=== PATIENT | female | born 2005 | race Caucasian/White ===

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

== ENCOUNTER 2023-10-21 14:30 | Outpatient (CLI) | payer MEDICAID, SELFPAY ==
[2023-10-21 14:50] VITALS: BP 124/76; PULSE 83
[2023-10-21 14:54] VITALS: BMI 36.2
[2023-10-21 14:56] VITALS: RESP 16; TEMP 36.7
--- NOTE | 2023-10-21 19:04 | OB.TRI.NOTE ---
HPI - General General Date of Service: 10/21/23 HPI Narrative FUNMILAYO MCCRARY, is a 18 F who presents with N&V. Maternal Data Information Final ELIDIA: 12/14/23 Gestational age: 32&5 PFSH [facility] Medical History (Updated 10/21/23 @ 19:[address] Alexander Solano MD) SVT (supraventricular tachycardia) POTS (postural orthostatic tachycardia syndrome) Home Medications ?Medication ?Instructions ?Recorded ?Last Taken ?Type vitamins no.144-folic 2 tab PO DAILY 10/21/23 10/20/23 21:17 History acid 400 mcg chewable tablet () Allergy/AdvReac Type Severity Reaction Status Date / Time No Known Allergies Allergy Verified 10/21/23 15:14 Social History Smoking Status: Current every day smoker tobacco type: e-cigarettes NST FHR Rate Baby A Baseline: 120 Variability:: Moderate Accelerations:: 15 x 15 Decelerations:: None NST Reactive:: Yes Uterine Activity:: quiet Assessment & Plan (1) Nausea/vomiting in : PLAN: Reactive NST
== END 2023-10-21 15:39 | disposition home or self-care (01) ==
LOC: WPOUT 14:37 → WP 14:38
PROVIDERS: PCP Family Medicine; Referring Provider Obstetrics & Gynecology; Visit Provider Obstetrics & Gynecology
DX: O21.9 Vomiting of pregnancy, unspecified (principal); F17.290 Nicotine dependence, other tobacco product, uncomplicated; Z3A.32 32 weeks gestation of pregnancy; O99.330 Smoking (tobacco) complicating pregnancy, unspecified trimester
CPT/HCPCS: 59025; 59050; 99221; G0378

== ENCOUNTER 2023-11-27 19:07 | Inpatient (IN) | payer MEDICAID, SELFPAY ==
[2023-11-27] VITALS (10 sets, daily range): BP systolic 140–157; BP diastolic 73–90; PULSE 76–93; RESP 16; TEMP 36.9–37; O2SAT 97–98; BMI 36.6
--- NOTE | 2023-11-27 18:52 | PCM.HP.OB ---
HPI - General General Date of Admission: 11/27/23 HPI Narrative FUNMILAYO MCCRARY, is a 18 F 37w4d at who presents for medically indicated induction of labor. Seen at [facility] on 11/24 for elevated BP. BP range 140/160's with normal Preeclampsia work up. Discharged home on Procardia XR 30mg PO once daily. Denies any headache, visual changes, or RUQ pain. Took BP at home and 160/110. Called patient from office after reviewing notes from ED visit on 10/25 and recommend IOL for GHTN Maternal Data Information ELIDIA Calculator Estimated Delivery Date Method Current WG Current Estimate 12/14/23 Manual 37w 4d PFSH PFS Medical History (Updated 11/27/23 @ 19:02 by Francesca Kwong CNM) SVT (supraventricular tachycardia) POTS (postural orthostatic tachycardia syndrome) Home Medications ?Medication ?Instructions ?Recorded ?Last Taken ?Type vitamins no.144-folic 2 tab PO DAILY supplement 10/21/23 11/26/23 21:00 History acid 400 mcg chewable tablet () nifedipine 30 mg tablet,extended 30 mg PO DAILY gestational 11/27/23 11/27/23 11:55 History release 24 hr (Procardia XL) hypertension Allergy/AdvReac Type Severity Reaction Status Date / Time No Known Allergies Allergy Verified 11/27/23 19:57 Social History Smoking Status: Current every day smoker tobacco type: e-cigarettes ROS Constitutional Constitutional: Reports systems reviewed and no addt'l complaints, except as documented; Denies headache(s) Eyes Eyes: Denies acute decrease in peripheral vision, blurry vision or change in vision ENT HEENT: Reports systems reviewed and no addt'l complaints, except as documented Cardiovascular Cardiovascular: Denies chest pain or dizziness Respiratory/Chest Respiratory/Chest: Denies cough, dyspnea, dyspnea on exertion, shortness of breath at rest or shortness of breath with exertion Gastrointestinal Gastrointestinal: Denies abdominal pain, diarrhea, nausea or vomiting Genitourinary Genitourinary: Denies abdominal discomfort Musculoskeletal Musculoskeletal: Denies limited range of motion Integumentary Integumentary: Reports systems reviewed and no addt'l complaints, except as documented Neurologic Neurologic: Reports systems reviewed and no addt'l complaints, except as documented Psychiatric Psychiatric: Reports systems reviewed and no addt'l complaints, except as documented Endocrine Endocrinology: Reports systems reviewed and no addt'l complaints, except as documented Hematologic/Lymphatic Hematologic/Lymphatic: Reports systems reviewed and no addt'l complaints, except as documented Allergic/Immunologic Allergic/Immunologic: Reports systems reviewed and no addt'l complaints, except as documented Vital Signs Vital Signs Vital Signs: 11/27/23 18:20 11/27/23 18:20 11/27/23 18:35 Pulse Rate 93 Blood Pressure 146/73 H 150/82 H BP Systolic 146 150 BP Diastolic 73 82 11/27/23 18:35 11/27/23 18:50 11/27/23 18:50 Pulse Rate 93 89 Blood Pressure 142/80 H BP Systolic 142 BP Diastolic 80 Weight Weight: 227 lb 4.745 oz Body Mass Index (BMI) 36.6 Physical Exam Const alert and oriented x3 General Appearance: cooperative Orientation / Consciousness: awake, oriented to person, oriented to place and oriented to time Exam Limitations: no limitations HEENT normocephalic Head and Scalp: normal to inspection, normocephalic and atraumatic Face and Sinus: normal facial exam Eyes General Eye: normal appearance of both eyes Neck full ROM Chest Chest: symmetrical chest wall rise Resp normal respiratory effort and normal air movement Auscultation: clear to auscultation bilaterally Cardio regular rate, regular rhythm, S1 normal heart sound, S2 normal heart sound, no murmurs, no rub, no gallops and no clicks GI normal to inspection, nondistended, normoactive bowel sounds and non-tender appearance of the vagina normal Bladder / Kidney Exam: no CVA tenderness Manual OB Exam: estimated gestational size appropriate, presentation cephalic, dilated fingertip, effaced 50%, station -3 and other Rod inserted over stylus through cervical os. 30ml NS instilled. Patient tolerated well. Back/Spine normal ROM Extremity normal to inspection and full ROM Skin no rashes or lesions noted Neuro oriented x3, CN's II-XII intact bilaterally and moves all extremities Sensorium / Orientation: awake, alert and oriented to person Motor Exam: clonus absent Deep Tendon Reflexes: Rt Patellar (L4): 2+ and Lt Patellar (L4): 2+ Labs Labs Labs: Antibody Screen Pending Hct 33.2 % (37-47) L Hgb 11.7 g/dL (12.0-15.0) L Syphilis Total Ab Pending GBS negative 1hr GCT negative O negative, Rhogam given 09/25/23 RPR non reactive Rubella Immune HBsAG negative HepC negative HIV non reactive Assessment & Plan (1) Gestational hypertension: (2) 37 weeks gestation of : (3) History of depression: (4) Obesity affecting : (5) Nicotine vapor product user: (6) Thrombocytopenia: (7) Rh negative status during : COMMENT: Rhogam given 09/25/23 (8) Positive GBS test: (9) Encounter for induction of labor: PLAN: Plan 1) Admit to labor and delivery 2) Routine labs and preeclampsia labs 3) Continuous EFM 4) Rod with cytotec for cervical ripening and then will start pitocin. 5) collaborative physician and notified of patient above assessment, plan and status 6) Pain management upon request. 7) BP mild range at this time, no signs of preeclampsia
[2023-11-27] MEDS: Lactated Ringers 1,000 ML 50 ML IV (19:25)
[2023-11-27 19:44] LABS: Absolute Lymphocyte Count 2.08 X10^3/uL (0.83-4.51); Absolute Neutrophil Count 9.3 X10^3/uL (2.0-7.7); Basophil# 0.04 X10^3/uL; Basophil% 0.3 % (0-1); Eosinophil# 0.08 X10^3/uL; Eosinophils% 0.6 % (0-5); Hematocrit 33.2 % (37-47); Hemoglobin 11.7 g/dL (12.0-15.0); Lymphocyte # 2.08 X10^3/ul (0.83-4.51); Lymphocyte % 16.9 % (19-41); Mean Corp Hgb Conc 35.2 g/dL (32-36); Mean Corpuscular Hgb 33.1 pg (27.0-32.0); Mean Corpuscular Volume 93.8 fL (81-99); Mean Platelet Vol. 11.9 fl (6.2-12.0); Monocyte# 0.72 X10^3/uL; Monocyte% 5.8 % (0-10); NRBC Flagged by Analyzer 0 % (0-5); Neutrophil # 9.28 X10^3/uL (2.7-7.7); Neutrophil % 75.3 % (47-70); Platelet Count 136 K/mm3 (150-450); RBC Distribution Width CV 12.8 % (11.6-14.6); RBC Distribution Width SD 44.1 fl (35.1-43.9); Red Blood Count 3.54 M/mm3 (4.2-5.4); White Blood Count 12.3 K/mm3 (4.4-11.0)
[2023-11-27 20:06] LABS: AST(SGOT) 22 U/L (15-37); Alanine Aminotransfer ALT/SGPT 25 U/L (13-56); EST Glomerular Filtration Rate 166 mL/min (>60); Est Glom Filt Rate - Afr Amer 201 mL/min (>60); Estimated Creatinine Clearance 217.66 ml/min; Uric Acid 4.9 mg/dL (2.6-6.0)
[2023-11-27] MEDS: 0.9% Normal Saline Single 100 ML IV.SOLN. INTRA-UTER (20:07)
[2023-11-27] MEDS: Penicillin G Pot 5,000,000 UNITS in 0.9% Normal Saline (100mL MB+) 100 ML 150 UNITS IV (20:09)
[2023-11-27 20:26] LABS: Syphilis Antibodies Non-reactive
[2023-11-27] MEDS: miSOPROStol 25 MCG TABLET PO (20:34)
[2023-11-27 21:39] LABS: Protein, Urine (Random) 34.6 mg/dL (<11.9); Protein:Creat Ratio 158 mg/g CRE (0-200)
[2023-11-28] VITALS (96 sets, daily range): BP systolic 121–180; BP diastolic 64–102; PULSE 74–112; RESP 16–20; TEMP 36.2–37.6; O2SAT 89–100
[2023-11-28] MEDS: miSOPROStol 25 MCG TABLET PO (00:36)
[2023-11-28] MEDS: Penicillin G 3,000,000 Units 50 ML 100 UNITS IV ×6 (00:37→21:16)
[2023-11-28] MEDS: Oxytocin 15 Units/NS 250ml 15 UNITS/250 ML IV.SOLN 2 UNITS IV (04:39)
[2023-11-28] MEDS: Lactated Ringers 1,000 ML 50 ML IV (06:54)
--- NOTE | 2023-11-28 08:52 | PCM.PN.OB ---
Subjective Subjective Patient feeling some contractions Objective Data Objective Data Vital Signs: Vital Signs Temp Pulse Resp BP Pulse Ox 98.1 F 76 16 137/88 H 97 11/28/23 08:00 11/28/23 08:00 11/28/23 08:00 11/28/23 08:00 11/28/23 08:00 Weight: 227 lb 4.745 oz Body Mass Index (BMI) 36.6 Intake & Output: Intake and Output for Last 24 Hours 11/26/23 11/27/23 11/28/23 23:59 23:59 23:59 Intake Total 105 / 105 687.54 / 687.54 Balance 105 / 105 687.54 / 687.54 Lab / Micro Data 11/27/23 19:00 11/27/23 19:00 Labs: Laboratory Results - last 24 hr 11/27/23 19:00: WBC 12.3 H, RBC 3.54 L, Hgb 11.7 L, Hct 33.2 L, MCV 93.8, MCH 33.1 H, MCHC 35.2, RDW Std Deviation 44.1 H, RDW Coeff of Aliyah 12.8, Plt Count 136 L, MPV 11.9, Immature Gran % (Auto) 1.100 H, Neut % (Auto) 75.3 H, Lymph % (Auto) 16.9 L, [place] % (Auto) 5.8, Eos % (Auto) 0.6, Baso % (Auto) 0.3, Absolute Neuts (auto) 9.3 H, Absolute Lymphs (auto) 2.08, Nucleated RBC % 0, Creatinine 0.50 L, Estim Creat Clear Calc 217.66, Est GFR (MDRD) Af Amer 201, Est GFR (MDRD) Non-Af 166, Uric Acid 4.9, AST 22, ALT 25, Syphilis Total Ab Non-reactive, Blood Type O NEGATIVE, Antibody Screen NEGATIVE 11/27/23 21:10: U Random Total Protein 34.6 H, Urine Creatinine 219.00, Protein/Creatinin Ratio 158 Physical Exam Narrative: cvx - 2/80/-2 NST FHR Rate Baby A Baseline: 120 Variability:: Moderate Accelerations:: 15 x 15 Decelerations:: None Uterine Activity:: Q 2min Assessment & Plan (1) Encounter for induction of labor: (2) Positive GBS test: (3) Gestational hypertension: QUALIFIERS: Trimester: third trimester Qualified Code(s): O13.3 - Gestational [-induced] hypertension without significant proteinuria, third trimester PLAN: Plan AROM clear fluid & IUPC placed Continue induction
[2023-11-28] MEDS: Lactated Ringers 1,000 ML 999 ML IV (13:38)
[2023-11-28] MEDS: proCHLORPERazine 10 MG/2 ML Vial IV (15:07)
[2023-11-28] MEDS: fentaNYL-bupivacaine (epidural) 100 ML BAG EPIDURAL ×2 (15:10→20:15)
[2023-11-28] MEDS: Lactated Ringers 1,000 ML 200 ML IV ×3 (16:55→22:09)
[2023-11-28] MEDS: Magnesium Sulfate 4gm/100mL 4 GM/100 ML IV.SOLN. IV (22:07)
[2023-11-28] MEDS: Magnesium Sulfate 20 GM/500 ML BAG IV (22:34)
[2023-11-28] MEDS: Oxytocin 15 Units/NS 250ml 15 UNITS/250 ML IV.SOLN 18 UNITS IV (23:18)
[2023-11-29] VITALS (66 sets, daily range): BP systolic 122–152; BP diastolic 67–91; PULSE 82–117; RESP 14–18; TEMP 36.4–37.1; O2SAT 93–99
[2023-11-29] MEDS: Oxytocin 15 Units/NS 250ml 15 UNITS/250 ML IV.SOLN 999 UNITS IV (00:12)
[2023-11-29] MEDS: miSOPROStol 200 MCG Tablet 1000 MCG RC (00:15)
--- NOTE | 2023-11-29 00:34 | EX.PCM.OBRPT ---
Maternal Data Information ELIDIA Calculator Estimated Delivery Date Method Current WG Current Estimate 12/14/23 Manual 37w 6d Vaginal Delivery Maternal Presentation Maternal Presentation: Medically Indicated Induction Medical Reason for Induction: Preeclampsia, eclampsia Operative Information Date of Procedure: 11/29/23 Pre-Operative Diagnosis: Preeclampsia without severe features Post-Operative Diagnosis: Same Surgery / Procedure Performed: Spontaneous Vaginal Delivery Type of Anesthesia: Epidural Drain: Rod to straight drain Estimated Blood Loss: 500ml Findings Description of Procedure: Patient prepped & draped when C/C/+2. She pushed well to deliver the head. head gently guided to allow delivery of anterior and posterior shoulders. No excess traction placed on head. Body delivered and 3VC clamped & cut in delayed fashion. Placenta delivered with gentle traction and good uterine tone obtained. Presentation: KEHINDE Amniotic Membrane Rupture Type: Artificial Amniotic Fluid Description: Clear Placental Delivery Description: Expressed Placenta Disposition: [facility] Specimen(s) Removed: Placenta Cord Vessel Description: 3 Vessels Cord Entanglement: None Infant A Gender: Male (1 minute): 8 (5 minute): 9 Delayed Cord Clamping: Yes Post Vaginal Delivery Medications Given After Delivery: IV Pitocin and - (Rectal cytotec) Episiotomy Description: None Laceration: Vaginal Extension/lac (bilateral first degree - repaired with 3-0 vicryl) Complication Complications: None
[2023-11-29] MEDS: Oxytocin 15 Units/NS 250ml 15 UNITS/250 ML IV.SOLN 83 UNITS IV (00:43)
[2023-11-29] MEDS: Magnesium Sulfate 20 GM/500 ML BAG IV ×2 (08:19→17:48)
--- NOTE | 2023-11-29 08:44 | PCM.PN.OB ---
Subjective Subjective Pain well controlled, average lochia. Tired. Denies Sales or visual changes Objective Data Objective Data Vital Signs: Vital Signs Temp Pulse Resp BP Pulse Ox O2 Del Method 97.7 F L 95 18 128/75 H 97 Room Air 11/29/23 07:00 11/29/23 07:59 11/29/23 07:00 11/29/23 07:59 11/29/23 07:59 11/29/23 07:00 Oxygen Delivery Method Room Air Weight: 103.1 kg Body Mass Index (BMI) 36.6 Intake & Output: Intake and Output for Last 24 Hours 11/27/23 11/28/23 11/29/23 23:59 23:59 23:59 Intake Total 105 / 105 4571.35 / 4571.35 2059.40 / 2059.40 Output Total 1650 / 1650 2009 Balance 105 / 105 2921.35 / 2921.35 49.40 / 49.40 Lab / Micro Data 11/27/23 19:00 11/27/23 19:00 Labs: Laboratory Results - last 24 hr 11/29/23 02:45: Screen NEGATIVE, Baby's Blood Type O POSITIVE, Baby's JESUS MANUEL NEGATIVE Assessment & Plan (1) Pre-eclampsia affecting childbirth: PLAN: PPD#0 s/p , preeclampsia w/ severe range BPs. On mag for 24 hrs PP. Recheck CBC today. doing well. Questions answered
[2023-11-29 10:12] LABS: Hematocrit 28.2 % (37-47); Hemoglobin 9.9 g/dL (12.0-15.0); Mean Corp Hgb Conc 35.1 g/dL (32-36); Mean Corpuscular Hgb 33.3 pg (27.0-32.0); Mean Corpuscular Volume 94.9 fL (81-99); Mean Platelet Vol. 11.7 fl (6.2-12.0); POSITIVE COUNT YES; Platelet Count 131 K/mm3 (150-450); RBC Distribution Width CV 12.9 % (11.6-14.6); RBC Distribution Width SD 44.3 fl (35.1-43.9); Red Blood Count 2.97 M/mm3 (4.2-5.4); White Blood Count 19.2 K/mm3 (4.4-11.0)
[2023-11-29 10:14] LABS: Differential Comment SCANNED; Scan Indicated on CBC? Y/N YES- FLAGS NOTED
[2023-11-29] MEDS: Rho(D) Immune Globulin 300 MCG (1500 Unit) Syringe IV (17:49)
[2023-11-29] MEDS: NIFEdipine 30 MG Tablet PO (17:49)
[2023-11-29] MEDS: 0.9% Saline Lock 10 ML Syringe IV (17:56)
[2023-11-30] VITALS (16 sets, daily range): BP systolic 127–146; BP diastolic 70–91; PULSE 75–102; RESP 14–18; TEMP 36.3–36.9; O2SAT 97–99
--- NOTE | 2023-11-30 08:55 | PCM.PN.OB ---
Objective Data Objective Data Vital Signs: Vital Signs Temp Pulse Resp BP Pulse Ox O2 Del Method 98.5 F 85 18 127/70 H 98 Room Air 11/30/23 08:20 11/30/23 08:20 11/30/23 08:20 11/30/23 08:20 11/30/23 08:20 11/30/23 08:20 Oxygen Delivery Method Room Air Weight: 103.1 kg Body Mass Index (BMI) 36.6 Intake & Output: Intake and Output for Last 24 Hours 11/28/23 11/29/23 11/30/23 23:59 23:59 23:59 Intake Total 4571.35 / 4571.35 3951.90 / 3951.90 413.33 / 413.33 Output Total 1650 / 1650 5210 / 5210 0 / 0 Balance 2921.35 / 2921.35 -1258.10 / -1258.10 413.33 / 413.33 Lab / Micro Data 11/29/23 09:25 11/27/23 19:00 Labs: Laboratory Results - last 24 hr 11/29/23 09:25: WBC 19.2 H, RBC 2.97 L, Hgb 9.9 L, Hct 28.2 L, MCV 94.9, MCH 33.3 H, MCHC 35.1, RDW Std Deviation 44.3 H, RDW Coeff of Aliyah 12.9, Plt Count 131 L, MPV 11.7, Differential Comment SCANNED
--- NOTE | 2023-11-30 10:50 | CASEMGMT ---
Social Work Assessment Labor and Delivery Unit Patient Address: [place] [address] Phone number: [phone] Date of Referral: 11/29/23 Time of Referral:? 630 Referred By: Dr. Solano Date of Intervention: ??11/30/23 Time of Intervention:?1000 Reason for Referral:? mental health Sw completed chart review and acknowledges social work consult due to maternal mental health. Sw presented to bedside and introduced self to mother of baby (MOB- Aravind) and father of baby (FOB- Anand). Sw explained reason for sw involvement and completed psychosocial assessment. History obtained from: medical records, MOB and FOB Household composition: Currently residing in the family home is MOB, FOB and baby when ready for discharge. Parents deny that anyone else lives with them and deny any issues or concerns. Patient's parent/guardian status:? ?Parents report that they have been together for 4 years, going on 5 in March after meeting each other [place]. No issues reported of domestic violence or intimate partner violence. Medical History: ?FRAN is 18 year old female who is 1, para 0- now 1 following labor and delivery of . FRAN received routine care during with [facility]. FRAN presented to hospital for an induction of labor due to pre- e and delivered baby via vaginal delivery at 37 weeks on 11/28/23. Baby boy, named Rafael Harvey, was born weighing 7lb 2oz with apgars of 8 and 9 at one and five minutes of life, respectfully. FRAN states that she is breast feeding and baby will be followed by Dr. Walters for pediatrics. Educational Status:?Both parents graduated from high school, no concerns with reading, learning or comprehension. Financial Status: FOB is employed outside of the home where he works in construction and MOB will be staying home with baby. Infant Supplies:?? Parents have obtained all necessary baby supplies for baby, including: car seat, safe sleep space, clothes, diapers and wipes. Childcare/Caregiver(s):? MOB will be the primary caregiver to baby along with FOB when he is not working. Transportation:?? Both parents have their drivers license and reliable means of transportation. No barriers at this time. Programs/Agencies Involved: ???FRAN states that she attempted to apply for Medicaid insurance for baby, however this was done too prematurely and it was denied. Sw informed MOB that if she is not working she may be eligible for SNAP and that baby will be approved for insurance. MOB states that she is connected to [facility] and her worker is going to help her get connected to other resources that she/ baby may be eligible for. Children Services/Legal Issues:?Nno history of children services involvement, no issues or concerns warranting referral to be made at this time?? Behavioral Health Issues: ??Mental Health History:?Both parents deny mental health history/ diagnoses. MOB states that when she was younger she had anxiety and potentially depression due to her parents getting a divorce. MOB states that she has not had any issues or concerns with her mental health for almost five years. MOB states that she is not on medication and is not connected to any mental health services or supports. ?? Substance Use History:?Parents deny any substance use prior to and during . ? Family History:???MOB denies any family history of substance use/ addiction or significant mental health diagnoses. ?? Drug Screens: No drug screens observed in chart review. ?? Family/Social Stressors:? Parents deny and issues or concerns at this time. Support Systems: FRAN reports that both grandma's are their biggest supports at this time, along with her older sisters. Depression/Shaken Baby/Safe Sleeping:? Devon educated parents on signs and symptoms of baby blues and mood and anxiety disorders. Sw encouraged MOB to talk to her natural supports or her OBGYN if she feels as though she is struggling with her mental health during this period. FOB states that if MOB were to struggle he would be able to recognize that and he knows how to help and support her. MOB agreed with this. Devon educated parents on shaken baby prevention and ABCs of safe sleep. Parents express understanding. ASSESSMENT:? MOB and baby are admitted following labor and delivery. MOB with history of anxiety and depression, states that her mental health has been managed for five years. MOB states that she is not prescribed any medications and is not connected to any mental health services or supports. MOB and FOB have natural supports found in their moms. Parents have obtained all necessary baby supplies for baby. MOB was observed to hold baby lovingly and appropriately. Both parents engaged and involved in completion of psychosocial assessment. PLAN:? MOB and baby to be discharged when medically ready. ?No other services requested or indicated. Missy Prasad, DIVINITY TEACHER, [employer]ATH[employer]TER
[2023-11-30] MEDS: NIFEdipine 30 MG Tablet PO (17:35)
[2023-11-30] MEDS: 0.9% Saline Lock 10 ML Syringe IV (17:35)
--- NOTE | 2023-11-30 20:34 | PCM.PN.OB ---
Subjective Subjective Doing well. Breast feeding. BP has been good. Mag stopped last night. No symptoms. Mod lochia. Pain controlled. Objective Data Objective Data Vital Signs: Vital Signs Temp Pulse Resp BP Pulse Ox O2 Del Method 98.4 F 81 17 140/89 H 99 Room Air 11/30/23 16:51 11/30/23 16:55 11/30/23 16:51 11/30/23 16:55 11/30/23 16:54 11/30/23 16:51 Oxygen Delivery Method Room Air Weight: 103.1 kg Body Mass Index (BMI) 36.6 Intake & Output: Intake and Output for Last 24 Hours 11/28/23 11/29/23 11/30/23 23:59 23:59 23:59 Intake Total 4571.35 / 4571.35 3951.90 / 3951.90 413.33 / 413.33 Output Total 1650 / 1650 5210 / 5210 0 / 0 Balance 2921.35 / 2921.35 -1258.10 / -1258.10 413.33 / 413.33 Lab / Micro Data 11/29/23 09:25 11/27/23 19:00 ROS Constitutional Constitutional: Denies fatigue, fever(s) or malaise Eyes Eyes: Denies change in vision ENT HEENT: Denies dizziness or headache(s) Cardiovascular Cardiovascular: Denies chest pain, dyspnea or lightheadedness Respiratory/Chest Respiratory/Chest: Denies cough or dyspnea Neurologic Neurologic: Denies confusion, dizziness, headache(s), numbness or weakness Physical Exam Const alert and no apparent distress Narrative: Fundus firm, below umbilicus. Assessment & Plan (1) Pre-eclampsia affecting childbirth: (2) Positive GBS test: (3) (spontaneous vaginal delivery): PLAN: Plan Monitor BP Procardia for BP control
[2023-12-01 02:55] VITALS: BP 128/68; PULSE 90; RESP 15; TEMP 36.7; O2SAT 97
[2023-12-01 03:03] VITALS: BP 128/68; PULSE 90
--- NOTE | 2023-12-01 06:46 | PCM.PN.OB ---
Subjective Subjective Doing well. No BAKER. BP has been stable. Pain control. Mild lochia. Breast feeding. Already scheduled for in office follow up Objective Data Objective Data Vital Signs: Vital Signs Temp Pulse Resp BP Pulse Ox O2 Del Method 98.1 F 90 15 128/68 H 97 Room Air 12/01/23 02:55 12/01/23 03:03 12/01/23 02:55 12/01/23 03:03 12/01/23 02:55 12/01/23 02:55 Oxygen Delivery Method Room Air Weight: 103.1 kg Body Mass Index (BMI) 36.6 Intake & Output: Intake and Output for Last 24 Hours 11/29/23 11/30/23 12/01/23 23:59 23:59 23:59 Intake Total 3951.90 / 3951.90 413.33 / 413.33 Output Total 5210 / 5210 0 / 0 Balance -1258.10 / -1258.10 413.33 / 413.33 Lab / Micro Data 11/29/23 09:25 11/27/23 19:00 ROS Constitutional Constitutional: Denies fatigue, fever(s) or malaise Eyes Eyes: Denies change in vision ENT HEENT: Denies dizziness or headache(s) Cardiovascular Cardiovascular: Denies chest pain, dyspnea or lightheadedness Respiratory/Chest Respiratory/Chest: Denies cough or dyspnea Neurologic Neurologic: Denies confusion, dizziness, headache(s), numbness or weakness Physical Exam Const alert and no apparent distress Narrative: Fundus firm, below umbilicus. Assessment & Plan (1) (spontaneous vaginal delivery): (2) Pre-eclampsia affecting childbirth: PLAN: Plan Discharge home. Follow up in 3 days. Has BP cuff at home
--- NOTE | 2023-12-01 06:50 | PCM.DC.SUM ---
Providers Date of Admission: 11/27/23 Date of Discharge: 12/01/23 Primary Care Physician: Apoorva Garcia PA-C Reason For Visit: VAG Diagnosis Discharge Diagnosis (1) (spontaneous vaginal delivery): Status: Acute Code(s): O80 - Encounter for full-term uncomplicated delivery (2) Pre-eclampsia affecting childbirth: Status: Acute Code(s): O14.94 - Unspecified pre-eclampsia, complicating childbirth Plan Discharge home. Follow up in 3 days. Has BP cuff at home Medications at Discharge Home Medications vitamins no.144-folic acid 400 mcg chewable tablet () 2 tab PO DAILY supplement 10/21/23 nifedipine 30 mg tablet,extended release 24 hr (Procardia XL) 30 mg PO DAILY gestational hypertension 11/27/23 nifedipine 30 mg tablet,extended release 24 hr 30 mg PO DAILY@1730 #30 tabs 12/01/23 Hospital Course Operations None Procedures None Summary of Care Provided Minutes Spent on Discharge: 20 Hospital Course: Admitted for IOL for GHTN. BPs increased magnesium was required during labor. Uncomplicated . Breast feeding . On Procardia with BPs stable after magnesium discontinued, Physical Exam Const alert and no apparent distress Narrative: Fundus firm, below umbilicus. Weight / BMI Weight Weight: 103.1 kg Body Mass Index (BMI) 36.6 ABG / Lab / Microbiology Data 11/29/23 09:25 11/27/23 19:00 D/C Instructions May resume sexual activity in: 6 weeks Please Follow Up With: Soila Edge MD When: Follow up with our office in 1-2 and 6 weeks or as needed. [phone] Meaningful Use Info Meaningful Use Meaningful Use Diagnoses (Choose all that apply): None applicable Ischemic Stroke Statin Dosing Therapy Reference: STATIN DOSE THERAPY REFERENCE: * Patients > 75 years receive moderate or high dose statin therapy. * Patients 75 years or YOUNGER should receive HIGH intensity statin dose unless contraindicated. You will be required to document reason for non-treatment if statin daily dose does not meet guidelines. HIGH DOSE STATIN THERAPY DAILY Atorvastatin > than or = to 40 mg Rosuvastatin > than or = to 20 mg Amlodipine + Atorvastatin > than or = to 2.5/40 mg Ezetimibe + Simvastatin 10/80 mg Simvastatin 80mg Discharge Plan Admission Admit Date/Time: 11/27/23 19:07 Primary Reason for Your Visit: Labor and delivery Attending Provider: Alexander Solano Primary Care Provider: Apoorva Garcia Discharge Orders/Prescriptions Prescriptions: New nifedipine 30 mg Tablet Extended Release 24hr 30 mg PO DAILY@1730 Qty: 30 0RF Continued nifedipine [Procardia XL] 30 mg tablet extended release 24hr 30 mg PO DAILY 400 mcg tablet,chewable 2 tab PO DAILY Referrals / Follow Up: Apoorva Garcia, PA-C [Primary Care Provider] - Disposition Disposition (needs filled in before D/C Order can be placed): Home, Self Care
[2023-12-01 09:00] VITALS: BP 132/82; PULSE 96; RESP 16; TEMP 36.6
[2023-12-01 09:02] VITALS: BP 132/82; PULSE 96
[2023-12-01 15:35] VITALS: BP 137/93; PULSE 83; O2SAT 97
--- NOTE | 2023-12-06 14:29 | NURSING ---
follow up phone call made, no answer, left voicemail
== END 2023-12-01 10:20 | disposition home or self-care (01) | DRG 560 ==
PROVIDERS: Advanced Practice Midwife; Obstetrics & Gynecology; Admitting Provider Obstetrics & Gynecology; PCP Family Medicine; Referring Provider Obstetrics & Gynecology; Visit Provider Obstetrics & Gynecology
DX: O13.4 Gestational [pregnancy-induced] hypertension without significant proteinuria, complicating childbirth (principal); Z37.0 Single live birth; O14.14 Severe pre-eclampsia complicating childbirth; O99.214 Obesity complicating childbirth; F17.290 Nicotine dependence, other tobacco product, uncomplicated; O70.0 First degree perineal laceration during delivery; O99.824 Streptococcus B carrier state complicating childbirth; O99.334 Smoking (tobacco) complicating childbirth; Z3A.37 37 weeks gestation of pregnancy
CPT/HCPCS: 59025; 59050; 82565; 82570; 84156; 84450; 84460; 84550; 85025; 85027; 85461; 86780; 86850; 86900; 86901; 90384; 99221; J7120; A4216; G0378; J2790; J2791; J3490

== ENCOUNTER 2023-12-04 22:19 | Outpatient (CLI) | payer MEDICAID, SELFPAY ==
--- NOTE | 2023-12-04 22:05 | ED.RN ---
While triage'ing pt questionnaire triggered to notify ob for elevated bp (149/106) and unrelieved BAKER. OB notified and asked for pt to be sent there. Triage cancelled.
[2023-12-04 22:22] VITALS: BP 150/99; PULSE 81
[2023-12-04 22:23] VITALS: BMI 33.3
[2023-12-04 22:36] VITALS: BP 155/103; PULSE 76
[2023-12-04 23:08] LABS: Absolute Lymphocyte Count 2.05 X10^3/uL (0.83-4.51); Absolute Neutrophil Count 4.5 X10^3/uL (2.0-7.7); Basophil# 0.04 X10^3/uL; Basophil% 0.5 % (0-1); Eosinophil# 0.41 X10^3/uL; Eosinophils% 5.5 % (0-5); Hematocrit 28.9 % (37-47); Hemoglobin 10.1 g/dL (12.0-15.0); Lymphocyte # 2.05 X10^3/ul (0.83-4.51); Lymphocyte % 27.3 % (19-41); Mean Corp Hgb Conc 34.9 g/dL (32-36); Mean Corpuscular Hgb 32.7 pg (27.0-32.0); Mean Corpuscular Volume 93.5 fL (81-99); Mean Platelet Vol. 10.2 fl (6.2-12.0); Monocyte# 0.45 X10^3/uL; NRBC Flagged by Analyzer 0 % (0-5); Neutrophil # 4.48 X10^3/uL (2.7-7.7); Neutrophil % 59.8 % (47-70); Platelet Count 252 K/mm3 (150-450); RBC Distribution Width CV 12.8 % (11.6-14.6); RBC Distribution Width SD 43.1 fl (35.1-43.9); Red Blood Count 3.09 M/mm3 (4.2-5.4); White Blood Count 7.5 K/mm3 (4.4-11.0)
[2023-12-04] MEDS: Acetaminophen 500 MG Tablet 1000 MG PO (23:13)
[2023-12-04] MEDS: NIFEdipine 10 MG Capsule PO (23:14)
[2023-12-04] MEDS: NIFEdipine 30 MG Tablet PO (23:22)
[2023-12-04 23:52] VITALS: BP 144/94; PULSE 85
[2023-12-04 23:55] LABS: ALB/GLOB Ratio 0.8 RATIO (0.9-2.4); AST(SGOT) 25 U/L (15-37); Alanine Aminotransfer ALT/SGPT 38 U/L (13-56); Albumin, Serum 2.9 g/dL (3.2-5.0); Alkaline Phosphatase 77 U/L (45-117); Anion Gap 7 (5-15); BUN 11 mg/dL (7-18); BUN/Creat Ratio 15.9 RATIO (10-20); Calcium,Total 9.1 mg/dL (8.5-10.1); Chloride 109 mmol/L (98-107); Creatinine, Serum 0.69 mg/dL (0.55-1.02); EST Glomerular Filtration Rate 115 mL/min (>60); Est Glom Filt Rate - Afr Amer 139 mL/min (>60); Estimated Creatinine Clearance 149.92 ml/min; Globulin 3.6 g/dL (2.2-4.2); Glucose 97 mg/dL (74-106); Potassium 2.7 mmol/L (3.5-5.1); Protein, Total 6.5 g/dL (6.4-8.2); Sodium Level 142 mmol/L (136-145)
[2023-12-05 00:07] VITALS: BP 153/95; PULSE 81
[2023-12-05 00:22] VITALS: BP 162/99; PULSE 89
[2023-12-05 00:27] VITALS: BP 154/94; PULSE 83
[2023-12-05] MEDS: Labetalol 200 MG Tablet PO (00:27)
[2023-12-05] MEDS: Potassium Chloride Oral Tablet 20 MEQ 40 MEQ PO (00:28)
[2023-12-05 00:38] VITALS: BP 156/90; PULSE 83
[2023-12-05 00:52] VITALS: BP 143/90; PULSE 76
[2023-12-05 01:07] VITALS: BP 139/90; PULSE 87
[2023-12-05] MEDS: NIFEdipine 30 MG Tablet PO (01:14)
--- NOTE | 2023-12-05 01:23 | NURSING ---
Patient requesting to leave Against Medical Advice. Provider updated and aware. See QS for notes. AMA form signed, copy sent with patient. Patient has follow up appointment today at 1400 she says she will attend.
--- NOTE | 2023-12-05 07:29 | OB.TRI.NOTE ---
HPI - General General Date of Admission: 12/04/23 Date of Service: 12/04/23 Chief Complaint: high blood pressure HPI Narrative FUNMILAYO MCCRARY, is a 18 F who presents 5 days status post vaginal delivery, she had preeclampsia with severe features and did receive magnesium. She was discharged home 3 days ago. She called labor and delivery tonight complaining of increased blood pressures up to a diastolic of 110. She also stated she had a headache for 2 days. She did not take anything for the headache. She had been taking her blood pressure medication at home and this elevated blood pressure was about 30 minutes before she was supposed to take her scheduled Procardia. Maternal Data Information ELIDIA Calculator Estimated Delivery Date Method Current WG Current Estimate 12/14/23 Manual 38w 5d PFSH [facility] Medical History (Updated 11/30/23 @ 20:[address] Roya Fry MD) Gestational HTN Depression Anxiety SVT (supraventricular tachycardia) POTS (postural orthostatic tachycardia syndrome) Home Medications ?Medication ?Instructions ?Recorded ?Last Taken ?Type vitamins no.144-folic 2 tab PO DAILY supplement 10/21/23 12/03/23 History acid 400 mcg chewable tablet () nifedipine 30 mg tablet,extended 30 mg PO DAILY gestational 11/27/23 11/27/23 11:55 History release 24 hr (Procardia XL) hypertension nifedipine 30 mg tablet,extended 30 mg PO DAILY@1730 #30 tabs 12/01/23 12/04/23 Rx release 24 hr Allergy/AdvReac Type Severity Reaction Status Date / Time No Known Allergies Allergy Verified 12/04/23 22:23 Social History Smoking Status: Light Smoker (<10/day) History Elective abortions Hx Para 0 Spontaneous abortions Hx # Term Pregnancies Ectopic pregnancies Hx # Pregnancies Multiple births # of living children Assessment & Plan (1) Pre-eclampsia affecting childbirth: PLAN: day #5 status post spontaneous vaginal delivery. Had preeclampsia with severe features. Received magnesium prophylaxis during prior hospital admission. Received p.o. medications for blood pressure here. Will increase her Procardia. Has follow-up scheduled tomorrow. Patient left against our advice last night. She was counseled on the risks of leaving with uncontrolled hypertension. We will increase her Procardia for now and consider adding labetalol p.o. when she follows up today in the office. Hypokalemia. Patient given p.o. K-Dur. Patient declined staying for repeat labs. Has follow-up in the office today. Will recommend repeat today.
== END 2023-12-05 01:18 | disposition left against medical advice (07) ==
LOC: WPOUT 22:19 → WP 22:20
PROVIDERS: PCP Family Medicine; Referring Provider Obstetrics & Gynecology; Visit Provider Obstetrics & Gynecology
DX: O14.15 Severe pre-eclampsia, complicating the puerperium (principal); O99.893 Other specified diseases and conditions complicating puerperium; R51.9 Headache, unspecified; O99.335 Smoking (tobacco) complicating the puerperium; F17.200 Nicotine dependence, unspecified, uncomplicated; Z79.899 Other long term (current) drug therapy; O99.285 Endocrine, nutritional and metabolic diseases complicating the puerperium; E87.6 Hypokalemia
CPT/HCPCS: 80053; 85025; 99221; G0378